=== PATIENT | male | born 1960 | race Caucasian/White ===

== ENCOUNTER 2021-03-02 10:54 | Inpatient (IN) | payer OTHER ==
[2021-03-02 11:28] VITALS: BMI 21.6
[2021-03-02] MEDS ORDERED: METHADONE HCL 10 MG TABLET (FOR DETOX USE ONLY) ONE ×2 (12:10→12:11)
[2021-03-02] MEDS ORDERED: BISMUTH SUBSALICYLATE 524 MG/30 ML PO PRN (12:39)
[2021-03-02] MEDS ORDERED: MAGNESIUM CITRATE 300 ML BOTTLE PO PRN (12:39)
[2021-03-02] MEDS ORDERED: MAG HYDROX/AL HYDROX/SIMETH 30 ML UNIT-DOSE CUP PO PRN (12:39)
[2021-03-02] MEDS ORDERED: NICOTINE POLACRILEX 2 MG GUM BUC PRN (12:39)
[2021-03-02] MEDS ORDERED: ACETAMINOPHEN 325 MG TABLET (FP) PO PRN ×2 (12:39)
[2021-03-02] MEDS ORDERED: MENTHOL/PHENOL 1 EACH UD MM PRN (12:39)
[2021-03-02] MEDS ORDERED: MAGNESIUM HYDROX 2400MG/30ML ORAL SUSPENSION 30 ML CUP PO PRN (12:39)
[2021-03-02] MEDS ORDERED: IBUPROFEN 400 MG TABLET (FP) PO PRN (12:39)
[2021-03-02] MEDS ORDERED: METHADONE HCL 10 MG TABLET (FOR DETOX USE ONLY) PO ONE (13:00)
[2021-03-02] MEDS: hydrOXYzine PAMOATE 25 MG CAPSULE (FP) PO SCH ×3 (13:02→22:36)
[2021-03-02 14:52] LABS: HEMATOCRIT 36.1 % (35.4-49); HEMOGLOBIN 12.4 GM/dL (11.7-16.9); MCH 31.1 pg (25.7-33.7); MCHC 34.4 g/dl (32.0-35.9); MEAN CELL VOLUME 90.5 fl (80-96); MEAN PLT VOLUME 8.2 fl (7.5-11.1); PLATELET COUNT 269 K/MM3 (134-434); RBC 3.99 M/mm3 (4.00-5.60); WHITE BLOOD COUNT 8.2 K/mm3 (4.0-10.0)
[2021-03-02 15:27] LABS: ALBUMIN 3.8 g/dl (3.4-5.0)
[2021-03-02 15:30] LABS: BILIRUBIN,TOTAL 0.3 mg/dL (0.2-1)
[2021-03-02 15:33] LABS: CALCIUM 9.6 mg/dL (8.5-10.1); CREATININE 0.8 mg/dL (0.55-1.3)
[2021-03-02 15:37] LABS: TOT PROT 6.6 g/dl (6.4-8.2)
[2021-03-02] MEDS: MELATONIN 5 MG TABLETS PO SCH (22:36)
[2021-03-02] MEDS: THIAMINE HCL 100 MG TABLET (FP) PO SCH (22:36)
[2021-03-03] MEDS: hydrOXYzine PAMOATE 25 MG CAPSULE (FP) PO SCH ×5 (06:35→22:39)
[2021-03-03] MEDS ORDERED: METHADONE HCL 5 MG TABLET (FOR DETOX USE ONLY) ONE (08:41)
[2021-03-03] MEDS ORDERED: METHADONE HCL 10 MG TABLET (FOR DETOX USE ONLY) ONE (08:42)
[2021-03-03] MEDS ORDERED: METHADONE (DETOX) 20 MG, METHADONE (DETOX) 5 MG PO ONE (10:00)
[2021-03-03] MEDS: PRENATAL VITAMINS W/ FOLIC ACID TABLET (FP) PO SCH (10:23)
[2021-03-03] MEDS: cloNIDine HCL 0.1 MG TABLET PO PRN (20:21)
[2021-03-03] MEDS: METHOCARBAMOL 500 MG TABLET PO PRN (20:21)
[2021-03-03] MEDS: THIAMINE HCL 100 MG TABLET (FP) PO SCH (22:39)
[2021-03-03] MEDS: MELATONIN 5 MG TABLETS PO SCH (22:40)
[2021-03-04] MEDS: hydrOXYzine PAMOATE 25 MG CAPSULE (FP) PO SCH ×5 (06:44→22:11)
[2021-03-04] MEDS ORDERED: METHADONE HCL 10 MG TABLET (FOR DETOX USE ONLY) PO ONE (10:00)
[2021-03-04] MEDS: PRENATAL VITAMINS W/ FOLIC ACID TABLET (FP) PO SCH (11:08)
[2021-03-04] MEDS: ONDANSETRON *ODT* 4 MG TABLET SL PRN ×2 (12:28→23:40)
[2021-03-04] MEDS: METHOCARBAMOL 500 MG TABLET PO PRN (13:49)
[2021-03-04] MEDS: cloNIDine HCL 0.1 MG TABLET PO PRN (13:55)
[2021-03-04] MEDS: THIAMINE HCL 100 MG TABLET (FP) PO SCH ×2 (22:11→22:42)
[2021-03-04] MEDS: MELATONIN 5 MG TABLETS PO SCH ×2 (22:11→22:44)
[2021-03-05] MEDS: hydrOXYzine PAMOATE 25 MG CAPSULE (FP) PO SCH (07:02)
[2021-03-05] MEDS ORDERED: METHADONE HCL 10 MG TABLET (FOR DETOX USE ONLY) ONE (09:31)
[2021-03-05] MEDS ORDERED: METHADONE HCL 5 MG TABLET (FOR DETOX USE ONLY) ONE (09:31)
[2021-03-05 09:32] VITALS: BP 136/65; PULSE 47; TEMP 97.9
[2021-03-05] MEDS ORDERED: METHADONE (DETOX) 10 MG, METHADONE (DETOX) 5 MG PO ONE (10:00)
[2021-03-06] MEDS ORDERED: METHADONE HCL 10 MG TABLET (FOR DETOX USE ONLY) PO ONE (10:00)
[2021-03-07] MEDS ORDERED: METHADONE HCL 5 MG TABLET (FOR DETOX USE ONLY) PO ONE (06:00)
== END 2021-03-05 09:59 | disposition home or self-care (01) | DRG 897 ==
LOC: YASAS 10:54 → Y6N 11:51
PROVIDERS: ADMIT Allergy & Immunology; ATTEND Allergy & Immunology
PROC: HZ2ZZZZ Detoxification Services for Substance Abuse Treatment (ICD-10-PCS; principal; 2021-03-02)
DX: F11.23 Opioid dependence with withdrawal (principal); F17.210 Nicotine dependence, cigarettes, uncomplicated; F43.10 Post-traumatic stress disorder, unspecified; E78.5 Hyperlipidemia, unspecified; K63.5 Polyp of colon
CPT/HCPCS: 36415; 80053; 85027; 86780; 93005; 93010; C9803; J0735; Q0162; U0003; U0005